=== PATIENT | female | born 1960 | race Caucasian/White ===

== ENCOUNTER → 2023-07-22 13:37 | Outpatient (CLI) | payer OTHER, SELFPAY ==
[2023-07-22 15:03] LABS: Erythrocyte Sedimentation Rate 10 mm/hr (0-30)
[2023-07-22 15:12] LABS: Thyroid Stimulating Hormone 0.86 uIU/mL (0.465-4.68)
[2023-07-22 15:47] LABS: Vitamin B12 873 pg/mL (239-931)
[2023-07-24 12:36] LABS: Rapid Plasma Reagin Ab Titer Non Reactive titer (NonRea<1:1)
[2023-07-28 21:21] LABS: Antinuclear Antibodies (ANA) Negative
== END ==
PROVIDERS: PCP Family Medicine; Visit Provider Nurse Practitioner Family
DX: R47.02 Dysphasia (principal); R47.89 Other speech disturbances; K21.9 Gastro-esophageal reflux disease without esophagitis
CPT/HCPCS: 36415; 82607; 82746; 84443; 85651; 86038; 86225; 86235; 86593

== ENCOUNTER 2024-11-08 13:24 | Outpatient (CLI) | payer BC, SELFPAY ==
[2024-11-08 14:49] LABS: Basophils % 0.7 % (0.1-2.0); Eosinophils # 0.2 K/mm3 (0.0-0.4); Hematocrit 34.9 % (37.0-47.0); Hemoglobin 11.1 g/dL (12.2-16.2); Lymphocytes # 1.2 K/mm3 (0.7-4.5); Lymphocytes % 27.7 % (10-50); Mean Corpuscular HGB Conc 31.8 g/dL (31.8-35.4); Mean Corpuscular Hemoglobin 26.7 pg (27.0-31.2); Mean Corpuscular Volume 83.9 fl (81-99); Mean Platelet Volume 9.8 fl (7.4-10.4); Monocytes # 0.3 K/mm3 (0.1-1.0); Monocytes % 6.5 % (1.7-9.3); Neutrophils # 2.6 K/mm3 (1.8-7.8); Neutrophils % 60.6 % (37.0-80.0); Platelet Count 323 K/mm3 (142-424); Red Blood Count 4.16 M/mm3 (4.20-5.40); Red Cell Distribution Width 13.9 % (11.5-17.5); White Blood Count 4.3 K/mm3 (4.8-10.8)
[2024-11-08 15:41] LABS: Alanine Aminotransferase 21 U/L (12-78); Albumin Level 4.1 g/dl (3.5-5.0); Albumin/Globulin Ratio 1.9 (1.1-1.8); Alkaline Phosphatase 65 U/L (38-126); Anion Gap 8.9 mEq/L (5-15); Aspartate Amino Transferase 33 U/L (14-36); Bilirubin,Total 0.2 mg/dl (0.2-1.3); Blood Urea Nitrogen 13 mg/dl (7-17); Calcium 8.9 mg/dl (8.4-10.2); Carbon Dioxide 28 mmol/L (22.0-30.0); Chloride 107 mmol/L (98-107); Estimated Glomerular Filt Rate 84 ml/min (>60); GFR (African American) 102 ML/MIN (>60); Globulin 2.2 g/dL (1.3-3.2); Glucose 71 mg/dl (74-100); Potassium 3.9 mmoL/L (3.5-5.1); Sodium 140 mmol/L (136-145); Total Protein,Serum 6.3 g/dl (6.3-8.2)
[2024-11-08 16:31] LABS: Vitamin B12 909 pg/mL (239-931)
== END 2024-11-08 23:59 | disposition home or self-care (01) ==
LOC: LAB 13:25
PROVIDERS: PCP Family Medicine; Visit Provider Specialist
DX: R47.9 Unspecified speech disturbances (principal); R13.10 Dysphagia, unspecified; R47.02 Dysphasia; Z68.27 Body mass index [BMI] 27.0-27.9, adult; E66.3 Overweight
CPT/HCPCS: 36415; 80053; 82607; 85025

== ENCOUNTER 2024-11-09 14:05 | Outpatient (CLI) | payer OTHER, SELFPAY ==
[2024-11-09 16:50] LABS: Iron 34 ug/dL (37-170)
[2024-11-09 16:59] LABS: Total Iron Binding Capacity 455 ug/dL (265-497)
[2024-11-09 17:27] LABS: Ferritin 6.55 ng/ml (11.1-264)
== END 2024-11-09 23:59 | disposition home or self-care (01) ==
LOC: LAB 14:06
PROVIDERS: PCP Family Medicine; Visit Provider Specialist
DX: D64.9 Anemia, unspecified (principal); R13.10 Dysphagia, unspecified
CPT/HCPCS: 82728; 83540; 83550